=== PATIENT | female | born 1975 | race Caucasian/White ===

== ENCOUNTER → 2020-05-03 16:10 | Outpatient (CLI) | payer BC, SELFPAY ==
--- NOTE | ~2020-05-03 | MM_ITS ---
EXAMINATION: MM screening [facility] BI w yuko HISTORY: Screening mammogram TECHNIQUE: Craniocaudal and mediolateral oblique 3-D tomosynthesis images were obtained and synthetic 2-D images were generated. CAD analysis was submitted and interpreted. COMPARISON: 03/25/2019, 03/12/2018, 12/30/2016 bilateral digital screening mammogram examinations BREAST PARENCHYMAL COMPOSITION: There are scattered areas of fibroglandular density. FINDINGS: Bilateral chronic low-density small circumscribed axillary tail opacities consistent with b enign lymph nodes. There is no evidence of suspicious mass, calcification, or architectural distortio n to suggest malignancy in either breast. There has been no suspicious interval change. IMPRESSION: 1. No mammographic evidence of malignancy. 2. Recommend routine screening mammography in one year. BI-RADS Category 2: Benign finding(s). Reviewed, dictated and finalized at location A. 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
== END ==
PROVIDERS: Visit Provider Obstetrics & Gynecology
DX: Z12.31 Encounter for screening mammogram for malignant neoplasm of breast (principal)
CPT/HCPCS: 77063; 77067

== ENCOUNTER → 2020-06-23 06:47 | Outpatient (CLI) | payer BC, SELFPAY ==
[2020-06-23 19:22] LABS: SARS-CoV-2 RNA PCR Negative
== END ==
PROVIDERS: PCP Family Medicine; Visit Provider Family Medicine
DX: Z20.822 Contact with and (suspected) exposure to COVID-19 (principal); J02.9 Acute pharyngitis, unspecified; R52 Pain, unspecified
CPT/HCPCS: C9803; U0003; U0005

== ENCOUNTER 2020-11-14 16:17 | Outpatient (CLI) | payer BC, SELFPAY ==
--- NOTE | 2020-11-14 16:34 | ECG_ITS ---
Measurements Intervals Tyler Rate: 73 P: 33 OH: 161 QRS: 33 QRSD: 93 T: 42 QT: 401 QTc: 445 Interpretive Statements SINUS RHYTHM NORMAL ECG Electronically Signed On 11-14-2020 17:22:22 CDT by Paul Garcia D.O.
== END 2020-11-14 16:18 | disposition home or self-care (01) ==
PROVIDERS: PCP Family Medicine; Visit Provider Nurse Practitioner Family
DX: Z01.810 Encounter for preprocedural cardiovascular examination (principal)
CPT/HCPCS: 93005

== ENCOUNTER → 2021-04-16 16:16 | Outpatient (CLI) | payer BC, SELFPAY ==
--- NOTE | ~2021-04-16 | US_ITS ---
EXAMINATION:US venous doppler LE BI INDICATION:Bilateral lower extremity edema TECHNIQUE: Multiple grayscale, color flow and Doppler images of the right and left lower extremity de ep venous systems were obtained and reviewed. COMPARISON:No prior studies for comparison. FINDINGS: The common femoral, superficial femoral and popliteal veins demonstrate normal respiratory variation, augmentation and compressibility. Color flow is also seen within the posterior tibial, pe roneal, greater saphenous and profunda veins. IMPRESSION: 1: No lower extremity deep venous thrombosis. Reviewed, dictated and finalized at location B. 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
--- NOTE | ~2021-04-16 | XR_ITS ---
XR knee LT 3V DATE: 04/16/2021 16:58 INDICATION: Swelling TECHNIQUE: AP, lateral, sunrise views COMPARISON: None FINDINGS: No fracture or dislocation or joint effusion. No periosteal reaction or bone destruction, r adiopaque intra-articular loose body or chondrocalcinosis. There is slight periarticular spurring of the patella. Joint spaces are well preserved. IMPRESSION: Slight periarticular spurring of the patella consistent with osteoarthritis Reviewed, dictated and finalized at location A. O ROUTER IMPRESSION: Slight periarticular spurring of the patella consistent with osteoa rthritis
== END ==
PROVIDERS: PCP Family Medicine; Visit Provider Nurse Practitioner Family
DX: R60.0 Localized edema (principal); M76.52 Patellar tendinitis, left knee
CPT/HCPCS: 73562; 93970

== ENCOUNTER → 2021-05-17 10:51 | Outpatient (CLI) | payer BC, SELFPAY ==
--- NOTE | ~2021-05-17 | MR_ITS ---
EXAMINATION: MR lower leg LT wo/w con DATE: 05/17/2021 12:12 INDICATION: Left lower leg pain TECHNIQUE: Magnetic resonance imaging (MRI) of the left lower leg was performed without intravenous c ontrast. A marker was placed over the region of concern at the anteromedial aspect of the proximal l eft lower leg. Sequences included axial, sagittal and coronal T1-weighted FSE and fluid sensitive FSE STIR, axial T2-weighted FS FSE, axial T1-weighted FS FSE and postcontrast axial, sagittal and oliver l T1-weighted FS FSE. COMPARISON: Left knee radiographs dated 04/16/2021 FINDINGS: Bone alignment is normal. Normal bone marrow signal throughout with no fracture, reactive edema or pa thologic marrow replacing process. There is focal severe fatty atrophy involving portion of the dista l left medial head of the gastrocnemius muscle. There appears to be a similar but significantly small er region of fatty atrophy at the medial head of the right gastrocnemius. There are some subtle patch y increased signal in the bilateral gastrocnemius and soleus muscles again left more prominent than r ight. Remaining musculature of the left calf is normal. No abnormal masses or fluid collections ident ified. No abnormally enhancing lesions. IMPRESSION: 1. Patchy increased muscle signal in the left gastrocnemius and soleus muscles with small region of s evere fatty atrophy of the distal medial head of the gastrocnemius. Although this could be due to tra faviola or denervation change, the appearance of similar but less severe findings at the contralateral ri ght calf also raises the possibility of another nonspecific acute on chronic myositis which could rep resent either an inflammatory, infectious or drug related myositis. Reviewed, dictated and finalized at location A. RETE CURER IMPRESSION: 1. Patchy increased muscle signal in the left gastrocnemius and soleus muscles with small region of severe fatty atrophy of the distal medial head of the yuri rocnemius. Although this could be due to trauma or denervation change, the appe arance of similar but less severe findings at the contralateral right calf also raises the possibility of another nonspecific acute on chronic myositis which could represent either an inflammatory, infectious or drug related myositis.
[2021-05-17 11:12] LABS: Estimated Glomerular Filt Rate > 60
== END ==
PROVIDERS: Visit Provider Orthopaedic Surgery
DX: M79.662 Pain in left lower leg (principal)
CPT/HCPCS: 73720; A9577

== ENCOUNTER → 2021-06-04 16:13 | Outpatient (CLI) | payer BC, SELFPAY ==
--- NOTE | ~2021-06-04 | MM_ITS ---
EXAMINATION: MM screening [facility] BI w yuko HISTORY: Screening mammogram TECHNIQUE: Craniocaudal and mediolateral oblique 3-D tomosynthesis images were obtained and synthetic 2-D images were generated. CAD analysis was submitted and interpreted. COMPARISON: 05/03/2020, 03/25/2019, 02/23/2018 BREAST PARENCHYMAL COMPOSITION: There are scattered areas of fibroglandular density. FINDINGS: There is no evidence of suspicious mass, calcification, or architectural distortion to sugg est malignancy in either breast. There has been no suspicious interval change. IMPRESSION: 1. No mammographic evidence of malignancy. 2. Recommend routine screening mammography in one year. BI-RADS Category 1: Negative Reviewed, dictated and finalized at location A.
== END ==
PROVIDERS: Visit Provider Obstetrics & Gynecology
DX: Z12.31 Encounter for screening mammogram for malignant neoplasm of breast (principal)
CPT/HCPCS: 77063; 77067

== ENCOUNTER 2021-09-22 08:09 | Emergency (ER) | payer BC, SELFPAY ==
[2021-09-22 08:18] VITALS: BP 106/78; PULSE 99; RESP 20; TEMP 37.1; O2SAT 100
--- NOTE | 2021-09-22 08:23 | ED.URI ---
HPI - URI/Sore Throat General Chief Complaint: Upper Respiratory Infection Stated Complaint: Sore Throat Time Seen by Provider: 09/22/21 08:24 History of Present Illness HPI Narrative: 46-year-old female presented for complaint of sore throat and sores in mouth for 4 days. She also endorsed today she noticed nasal congestion. She denies cough, shortness of breath, wheezing, nausea, vomiting, diarrhea, fevers or chills. Taking throat lozenges for symptoms. Denies sick contacts, denies lesions to hands or feet. She tested positive for covid september 07. Related Data Home Medications Medication Instructions Recorded Confirmed levothyroxine 50 mcg tablet 50 mcg PO DAILY 05/17/19 09/22/21 omeprazole 40 mg capsule,delayed 40 mg PO DAILY 04/11/21 09/22/21 release Allergies Allergy/AdvReac Type Severity Reaction Status Date / Time Penicillins Allergy Unknown Unknown Verified 09/22/21 08:27 SEAFOOD Allergy Unknown CHILD, Uncoded 05/15/21 13:56 VERY VAGUE-TYPE OF SEAFOOD UNKNOWN Review of Systems Review of Systems: CONSTITUTIONAL: Denies body aches, fever, chills, or sweats. EYES: Denies visual changes, redness, or discharge. ENT: Reports rhinorrhea, congestion, sore throat, mouth pain CARDIOVASCULAR: Denies chest pain, palpitations, or edema. RESPIRATORY: Denies dyspnea. GASTROINTESTINAL: Denies abdominal pain, nausea, vomiting, or diarrhea. SKIN: Denies rash, itching, or wounds. MUSCULOSKELETAL: Denies back pain, joint pain, or myalgia. NEUROLOGIC: Denies headache PMFSH Past Medical History Medical History BMI 30.0-30.9,adult Lump in thyroid Family History Family History Father Family history of transient ischemic attacks Grandparent Family history of transient ischemic attacks Family history of lung cancer Social History Social History Second hand tobacco smoke exposure: No Alcohol intake: current Substance use: never Substance use type: does not use Exam Narrative: GENERAL: well-appearing EYES: conjunctivae clear ENT: Mucous membranes moist. TM pearly guthrie with normal light reflex bilaterally; no tragal tenderness. Oropharynx erythematous. one round raised area on inner cheeks bilaterally, endorses tenderness with palpation no open areas ulcers or blisters; No drooling, no hoarseness, no trismus, uvula midline. NECK: Supple. No lymphadenopathy CHEST: Clear to auscultation, breath sounds equal. HEART: Regular rate and rhythm. No murmur heard. SKIN: Warm, dry, no rash. NEURO: Alert and oriented x3. Course Course Emergency Course: Patient is aware of diagnosis, understands and agrees to treatment plan. Anticipatory guidance given. Patient agrees to follow-up as directed and is aware of reasons to seek care at the emergency department. Portions of this record may have been created with voice recognition software Level of Care: Express Care Visit Vital Signs Vital signs: Vital Signs Temperature 98.8 F 09/22/21 08:18 Pulse Rate 99 09/22/21 08:18 Respiratory Rate 20 09/22/21 08:18 Blood Pressure 106/78 09/22/21 08:18 Pulse Oximetry 100 09/22/21 08:18 Oxygen Delivery Room Air 09/22/21 08:18 Temperature 98.8 F 09/22/21 08:18 Pulse Rate 99 09/22/21 08:18 Respiratory Rate 20 09/22/21 08:18 Blood Pressure 106/78 09/22/21 08:18 Pulse Oximetry 100 09/22/21 08:18 Oxygen Delivery Room Air 09/22/21 08:18 MDM - URI/Sore Throat MDM Narrative Medical decision making narrative: strep negative result reviewed with pt. Advise supportive treatments. Patient is appropriate for outpatient treatment and follow-up. Differential Diagnosis Differential diagnosis: Likely upper respiratory infection, viral infection and pharyngitis Lab Data Labs: Strep S
== END 2021-09-22 08:50 | disposition home or self-care (01) ==
PROVIDERS: Emergency Provider Nurse Practitioner Family; PCP Family Medicine
DX: K13.79 Other lesions of oral mucosa (principal); Z86.16 Personal history of COVID-19
CPT/HCPCS: 87081; 87880; 99213; G0463

== ENCOUNTER → 2022-07-18 15:39 | Outpatient (CLI) | payer BC, SELFPAY ==
--- NOTE | ~2022-07-18 | MM_ITS ---
EXAMINATION: MM screening [facility] BI w yuko HISTORY: Screening mammogram TECHNIQUE: Craniocaudal and mediolateral oblique 3-D tomosynthesis images were obtained and synthetic 2-D images were generated. CAD analysis was submitted and interpreted. COMPARISON: 06/04/2021, 05/03/2020, 03/25/2019 bilateral screening mammogram examinations BREAST PARENCHYMAL COMPOSITION: There are scattered areas of fibroglandular density. FINDINGS: There is no evidence of suspicious mass, calcification, or architectural distortion to sugg est malignancy in either breast. There has been no suspicious interval change. IMPRESSION: 1. No mammographic evidence of malignancy. 2. Recommend routine screening mammography in one year. BI-RADS Category 1: Negative Reviewed, dictated and finalized at location A.
== END ==
PROVIDERS: PCP Obstetrics & Gynecology; Visit Provider Obstetrics & Gynecology
DX: Z12.31 Encounter for screening mammogram for malignant neoplasm of breast (principal)
CPT/HCPCS: 77063; 77067

== ENCOUNTER 2024-12-02 00:29 | Day surgery (SDC) | payer OTHER, SELFPAY ==
--- OUTSIDE RECORDS SUMMARY | 1999-03-23 19:00 | XMS_ITS | Continuity of Care Document ---
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 Name Role Phone No Information Unavailable Unavailable Medications Medication Instructions Dosage Effective Dates (start - stop) Status Comments No Drug Therapy Prescribed Advance Directives Directive Yes / No Effective Date File Name No Information Encounters Encounter Description Practice Location Reason(s) For Visit Diagnoses Date Provider Providers Copied on Encounter [facility], [address] [place] [address], [id number], [place] tel:[phone] No Information No Information Family History Family Member Type Diagnosis Age At Onset No Information Payers Payer name Insurance type Covered libertarian ID Authoriza tion(s) No Information Social History Type Description Quantity Date Captured Comments Sex Female Smoking Status No Information Chief Complaint And Reason For Visit No Information History Of Present Illness Encounter Date Complaint History Of Prese nt Illness No Information Medications Administered Medication Instructions Dosage Effective Dates (start - stop) Status Comments No Drug Therapy Prescribed Instructions Date Instruction Additional Infor mation No Information Assessments Type Assessment Date No Information
[2024-11-24 16:29] VITALS: BMI 26.1
--- NOTE | 2024-11-24 16:32 | PC.NURSE ---
Report to the Outpatient Waiting Room, entrance under the green pavilion located off [facility], at 0600 on 12-02-24. Planned Procedure Time: 0730.? Time changes happen often and if your time is changed the preop area will call you the afternoon before. - You and your visitor will be asked to self-screen and do not enter if you have any COVID symptoms. Please call surgeon if you need to reschedule. - A mask is optional within the hospital at this time. Patients may have clear liquids (water, carbonated beverages, clear teas, apple juice) until 3 hours prior to surgery with a maximum of 20 ounces. 0430 - No food from midnight until time of surgery and no smoking, or chewing tobacco (or any form of nicotine). No chewing gum, candy or mints. - Infants may have breast milk until 4 hours before surgery, formula 6 hours prior to surgery. - Children will be allowed to drink immediately following surgery.? If applicable, please bring a bottle or sippy cup to assist with drinking. Juice, water, soda, and popsicles are readily available.? For infants on formula, please bring formula the day of surgery.? Pacifiers are allowed. Take only the following medications with a SIP of water on the morning of surgery: levothyroxine, sertraline DO NOT STOP ANY OF YOUR OTHER PRESCRIPTION MEDICATIONS PRIOR TO SURGERY EXCEPT THE FOLLOWING Hold all vitamins and supplements for 3 days per anesthesiologist. Patient told to bring rescue inhalers DOS to the hospital Medications to discontinue per physician: N/A Please no make-up, nail montserratian, hairspray, perfume, deodorant, or body powder the day of surgery.? No jewelry (including any body piercings) or valuables the day of surgery, leave them at home.? Please take a shower or bath the night before, or the morning of, surgery with an antibacterial soap.? Wear comfortable, loose fitting clothing.? Children are encouraged to wear pajamas. - Jewelry must be removed prior to entering the operating room.? Rings and piercings that are not removed may be cut off. - The hospital will not accept responsibility for valuables.? - Please leave all valuables, including medications, at home the day of surgery. If you are going home after surgery, a licensed wheelchair van driver must drive you home.? - NO public transportation without another adult if you receive anesthesia. - We recommend that an adult stay with you for 24 hours following discharge. - We also recommend that you do not drive, make important decision, drink alcoholic beverages, or take any drugs that were not prescribed by your health care provider for at least 24 hours after your discharge time. For Pediatric surgeries, we recommend two adults accompany the child home. Follow any additional instructions given to you from your surgeon. Telephone instructions given to Nhung Loja and asked if any additional questions and then verbalized understanding. Patient advised to call surgeon office or pre surgery nurse liaison [phone] if any additional questions.
--- NOTE | 2024-11-30 03:39 | P.HP_ITS ---
H&P: HPI History of Present Illness Date/Time: 11/30/24 03:39 Chief Complaint: Pelvic pain with right ovarian cyst Narrative: This 49-year-old female status post hysterectomy admitted for laparoscopic salpingo-oophorectomy secondary right ovarian cyst pelvic pain and dyspareunia risks and benefits reviewed including but not exclusive of , aspiration pneumonia, bleeding, transfusion, perforation injury to bowel, bladder, ureters, or other internal organs with no for open laparotomy. She received the A[employer] handout entitled laparoscopy. She had all questions answered. She asked to proceed. Review of Systems Review of Systems: CONSTITUTIONAL: Denies body aches, fever, chills, or sweats. EYES: Denies visual changes, redness, or discharge. ENT: Reports rhinorrhea, congestion, sore throat, mouth pain CARDIOVASCULAR: Denies chest pain, palpitations, or edema. RESPIRATORY: Denies dyspnea. GASTROINTESTINAL: Denies abdominal pain, nausea, vomiting, or diarrhea. SKIN: Denies rash, itching, or wounds. MUSCULOSKELETAL: Denies back pain, joint pain, or myalgia. NEUROLOGIC: Denies headache PMFSH Past Medical History Medical History Osteoarthrosis, shoulder region BMI 29.0-29.9,adult Adult BMI 32.0-32.9 kg/sq m Lump in thyroid BMI 30.0-30.9,adult Family History Family History Father Family history of transient ischemic attacks COPD (chronic obstructive pulmonary disease) Grandparent Family history of transient ischemic attacks Family history of lung cancer Mother No problems noted. Sibling No problems noted. 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 Gender identity (if verbalized by the patient): Female Spiritual care concerns: No Meds Home Medications and Allergies Home Medications ?Medication ?Instructions ?Recorded ?Confirmed ?Type levothyroxine 50 mcg tablet 50 mcg PO DAILY 05/17/19 0 11/24/24 History diphenhydramine HCl 12.5 mg/5 mL 25 mg (10 mL) PO Q6H PRN magic 09/22/21 11/24/24 Rx oral liquid (Benadryl Allergy) mouthwash #118 mL albuterol sulfate 2.5 mg/3 mL 2.5 mg (3 mL) inhalation Q6H #180 02/08/24 11/24/24 Rx (0.083 %) solution for nebulization mL sertraline 50 mg tablet (Zoloft) 50 mg PO DAILY #90 ta bs 02/08/24 11/24/24 Rx albuterol sulfate 90 mcg/actuation 2 inh inhalation Q4 H PRN shortness 09/08/24 11/24/24 Rx aerosol inhaler of breath or wheezing #3 dev ice omeprazole 40 mg capsule,delayed See Rx Instructions . Route 09/08/24 11/24/24 Rx release .COMPLEX #90 caps multivitamin (One Daily 1 tablet PO DAILY 11/24/24 0 11/24/24 History Multivitamin tablet) Allergies Allergy/AdvReac Type Severity Reaction Status Date / Time Penicillins Allergy Unknown Unknown Verified 11/24/24 16:11 Exam Const: General: cooperative, healthy appearing, comfortable and overweight Orientation/consciousness: oriented to person, oriented to place and oriented to time HENMT: Head: normal to inspection Resp: Effort & Inspection: normal respiratory effort Cardio: Rate: regular rate Rhythm: regular rhythm Heart sounds: S1 normal heart sound present and S2 normal heart sound present GI: Inspection: normal to inspection : External Female Exam: normal external appearance Speculum Exam - Vagina: normal appearance of the vagina Speculum Exam - Cervix: Cervix absent Bimanual Exam- Adnexa, other: tender bilaterally Assessment and Plan Assessment and plan (1) Pelvic pain: Code(s): R10.2 - Pelvic and perineal pain Status: Acute Plan Proceed with laparoscopic bilateral salpingo-oophorectomy
[2024-12-02] VITALS (9 sets, daily range): BP systolic 97–144; BP diastolic 57–91; PULSE 77–102; RESP 12–18; TEMP 36.6–37.3; O2SAT 97–100
--- OUTSIDE RECORDS SUMMARY | 2024-12-02 00:31 | XMS_ITS | Clinical Summary ---
Author Organization [employer] [facility] Address [address] [place] [address] Care Team Providers Care Senior It Recruiter Name Role Phone Jerry Cantu MD Primary Care Provider [phone] Allergies Active Allergy Reactions Criticality Noted Date Comments Penicillins Unknown 09/11/2014 Unknown reaction, Happened as a child Medications sertraline (ZOLOFT) 50 mg tablet TAKE 1 TABLET BY MOUTH ONCE DAILY 1 Active levothyroxine 100 mcg tablet TAKE 1 TABLET BY MOUTH ONCE DAILY 1 Active albuterol sulfate 90 mcg/Actuation inhaler Take 2 Puffs by inhalation every 4 hours as needed for Wheezing or Shortness of Breath. 1 Active cyclobenzaprine (FLEXERIL) 10 mg tablet Take 10 mg by mouth 3 times daily as needed for Spasm. 1 Active traMADoL (ULTRAM) 50 mg tablet Take 50 mg by mouth every 8 hours as needed for Pain, Moderate. 2 Active cholestyramine, with sugar, (QUESTRAN) 4 gram Powder in Packet Take 1 packet at bedtime daily. No other PO medications 2 hours before and after. 60 Packet 2 2 Active cholestyramine, with sugar, (QUESTRAN) 4 gram Powder in Packet Take 1 packet at bedtime daily. No other PO medications 2 hours before and after. 60 Packet 2 2 Active omeprazole (PriLOSEC) 40 mg Capsule, Delayed Release(E.C.) Take 1 Capsule (40 mg) by mouth daily. 60 Capsule 3 Active Active Problems Problem Noted Date Diagnosed Date Esophageal dysphagia 12/12/2020 Sore throat 12/12/2020 Family History Medical History Relation Name Comments Colon Cancer Neg Hx Esophageal Cancer Neg Hx Social History Tobacco Use Types Packs/Day Years Used Date Smoking Tobacco: Never Smokeless Tobacco: Never Tobacco Cessation:Counseling Given: Not Answered Alcohol Use Standard Drinks/Week Comments Yes 0 (1 standard drink = 0.6 oz pur e alcohol) socially Comments No Sex and Gender Information Value Date Recorded Sex Assigned at Not on file Legal Sex Female 12:39 PM CDT Gender Identity Not on file Sexual Orientation Not on file Last Filed Vital Signs Vital Sign Reading Time Taken Comments Blood Pressure 120/79 01/04/2022 8:55 AM CDT Pulse 72 01/04/2022 8:55 AM CDT Temperature 36.3 C (97.3 F) 01/04/2022 8:35 AM CDT Respiratory Rate 9 01/04/2022 8:55 AM CDT Oxygen Saturation 100% 01/04/2022 8:55 AM CDT Inhaled Oxygen Concentration - - Weight 98.9 kg (218 lb) 01/04/2022 7:13 AM CDT Height 175.3 cm (5' 9) 01/04/2022 7:13 AM CDT Body Mass Index 32.19 01/04/2022 7:13 AM CDT Plan of Treatment Health Maintenance Due Date Last Done Comments DTAP/TDAP/TD VACCINES (1 - Tdap) 1992 HEPATITIS B VACCINES (1 of 3 - 19+ 3-dose series) 1992 BREAST CANCER SCREENING 2013 FIT-DNA Q 3 years 2018 FIT/FOBT Q 1 year 2018 Flex Sig/CT Colonography Q 5 years 2018 ZOSTER VACCINE (1 of 2) 06/01/2023 INFLUENZA VACCINE (#1) 2024 COLORECTAL SCREENING 01/05/2032 01/04/2022, 01/05/20 22 Colorectal Cancer Screening 01/05/2032 Procedures Procedure Name Priority Date/Time Associated Diagnosis Comments COLONOSCOPY REPORT 01/04/2022 8: 23 AM CDT from Last 3 Months or Most Recently Relevant to Health Maintenance Results * COLONOSCOPY REPORT (01/04/2022 8:23 AM CDT) Narrative Procedure Note Juan Francisco Ragsdale MD - 01/04/2022 8:22 AM CDT [facility] Endoscopy Patient Name: Nhung Loja Procedure Date: 01/04/2022 Date of : 1975 Attending MD: Juan Francisco Ragsdale , , Procedure: Colonoscopy Indications: Screening for colorectal malignant neoplasm, Incidental diarrhea noted Providers: Juan Francisco Ragsdale Referring MD: Jerry Cantu Medicines: General Anesthesia Complications: No immediate complications. Procedure: Informed consent was obtained for the procedure, including moderate sedation after risks were discussed. Based on the pre-procedure assessment, including review of the patient's medical history, medications, allergies, and review of systems, the patient was deemed to be an appropriate candidate for sedation. A timeout was performed. Continuous ECG monitoring, pulse oximetry, blood pressure monitoring, and direct observation were performed. The Colonoscope was introduced through the anus and advanced to the cecum, identified by appendiceal orifice and ileocecal valve. The colonoscopy was performed with ease. The patient tolerated the procedure well. The quality of the bowel preparation was good. The ileocecal valve, appendiceal orifice, and rectum were photographed. The quality of the bowel preparation was evaluated using the BBPS ([place] Bowel Preparation Scale) with scores of: Right Colon = 2 (minor amount of residual staining, small fragments of stool and/or opaque liquid, but mucosa seen well), Transverse Colon = 2 (minor amount of residual staining, small fragments of stool and/or opaque liquid, but mucosa seen well) and Left Colon = 2 (minor amount of residual staining, small fragments of stool and/or opaque liquid, but mucosa seen well). The total BBPS score equals 6. Findings: The perianal and digital rectal examinations were normal. Non-bleeding internal hemorrhoids were found during retroflexion. The hemorrhoids were small. The colon (entire examined portion) appeared normal. Biopsies were taken with a cold forceps for histology. The exam was otherwise without abnormality. Impression: - Non-bleeding internal hemorrhoids. - The entire examined colon is normal. Biopsied. - The examination was otherwise normal. Recommendation: - Patient has a contact number available for emergencies. The signs and symptoms of potential delayed complications were discussed with the patient. Return to normal activities tomorrow. Written discharge instructions were provided to the patient. - Resume previous diet. - Continue present medications. - Await pathology results. - Repeat colonoscopy in 10 years for screening purposes. Procedure Code(s): --- Professional --- 29564, Colonoscopy, flexible; with biopsy, single or multiple CPT copyright 2020 [employer]. All rights reserved. The codes documented in this report are preliminary and upon baseball hand sewer review may be revised to meet current compliance requirements. Juan Francisco Ragsdale, 01/04/2022 8:22:40 AM This report has been signed electronically. 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 [address] PCP - General Family Practice 12/12/20
--- OUTSIDE RECORDS SUMMARY | 2024-12-02 00:31 | XMS_ITS | Clinical Summary ---
Author Organization [facility] Address [address] [place] [address] Care Team Providers Care Automatic Blocker Name Role Phone Jerry Cantu MD Primary Care Provider [phone] Encounters Date Type Department Care Team Description 09/09/2024 9:49 AM CDT - 09/09/2024 11:59 PM CDT Hospital Encounter [facility] [address] [place] [address] Amanuel Coulter, METAL BENCH PATTERNMAKER Discharge Disposition: Home or Self Care (Routine Discharge) 09/09/2024 9:47 AM CDT - 09/09/2024 9:48 AM CDT Hospital Encounter [facility] Mammography [address] [place] [address] Roxie Hoang MD Discharge Disposition: Home or Self Care (Routine Discharge) 09/09/2024 Travel from Last 3 Months Social History Tobacco Use Types Packs/Day Years Used Date Smoking Tobacco: Never Assessed Comments Unknown Sex and Gender Information Value Date Recorded Sex Assigned at Female 09/09/2024 9:45 AM CDT Legal Sex Female 11:17 AM CDT Gender Identity Not on file Sexual Orientation Not on file Plan of Treatment Health Maintenance Due Date Last Done Comments Cervical Cancer Screening Pap Smear (Age 30 to 64) Every 3 Years 1973 Colorectal Cancer Screening Colonoscopy (10 Years) 1973 Annual Physical 1976 Hepatitis C 06/01/1991 DTaP, Tdap and Td Vaccines (1 - Tdap) 1992 Hepatitis B Vaccines (1 of 3 - 19+ 3-dose series) 1992 Cervical Cancer Screening Pap with HPV Testing (Age 30 to 64) Every 5 Years 06/01/2003 Cervical Cancer Screening with HPV 06/01/2003 Pneumococcal Vaccine: 50+ Years (1 of 1 - PCV) 06/01/2023 Zoster Vaccines (1 of 2) 06/01/2023 COVID-19 Vaccine ( season) 2024 01/21/2023, 01/31/2022, 03/23/2021, Additional history exists Mammogram Screening 09/09/2026 09/09/2024, Meningococcal B Vaccine Aged Out No l onger eligible based on patient's age to complete this topic Meningococcal Vaccine Aged Out No libertad larissa eligible based on patient's age to complete this topic RSV Immunizations Under 20 Months Aged Out No longer eligible based on patient's age to complete this topic Procedures Procedure Name Priority Date/Time Associated Diagnosis Comments MG SCREENING W EDWIN MING DIGI Routine 09/09/2024 10:36 AM CDT Encounter for screening mammogram for malignant neoplasm of breast CT ABD+PEL WWO CON Routine 09/09/2024 10 :05 AM CDT Unspecified abdominal pain from Last 3 Months Results * MG SCREENING W EDWIN MING DIGI (09/09/2024 10:36 AM CDT) Anatomical Region Laterality Modality Breast Bilateral Mammography 09/09/2024 3:51 PM CDT Impressions 09/09/2024 3:53 PM CDT IMPRESSION: No significant interval change. No mammographic evidence of malignancy. RECOMMENDATION: Routine ScreeningBilateral OVERALL IMAGING ASSESSMENT: ACR BI-RADS 1 - NEGATIVE. Ordered By: ROXIE NAIR Interpreted By: Abdulaziz Jade, 09/09/2024 3:51 PM Narrative 09/09/2024 3:53 PM CDT [address] [address] EXAMINATION: MG SCREENING W EDWIN MING DIGI INDICATIONS: Screening TECHNIQUE: Digital full field CC and MLO screening mammography bilaterally to include 3-D Tomosynthesis technique. This study was read with the assistance of a computer-aided detection system. HISTORY: No reported breast complaint. No documented personal or first degree family history of breast cancer. No documented prior breast procedure. COMPARISON: 09/05/2023, 07/18/2022, 06/04/2021, 05/03/2020, and 03/25/2019. TISSUE DENSITY: There are scattered areas of fibroglandular density. FINDINGS: No suspicious microcalcification or mass. No developing asymmetry or architectural distortion. No axillary adenopathy. us Roxie Nair MD MAMMO Final Resu lt * CT ABD+PEL WWO CON (09/09/2024 10:05 AM CDT) Anatomical Region Laterality Modality Abdomen Computed Tomogra phy 09/10/2024 6:45 PM CDT Impressions 09/10/2024 6:51 PM CDT IMPRESSION: 1. Multicystic elongated lesion in the right lateral pelvic wall measuring up to 4.3 cm in greatest dimension is indeterminate. Further evaluation with pelvic ultrasound recommended. 2. No acute abdominal or pelvic abnormalities otherwise. No specific CT findings to explain patient's symptoms. Referred By: AMANUEL COULTER Interpreted By: Juancarlos Byrd MD, 09/10/2024 6:45 PM Narrative 09/10/2024 6:51 PM CDT [address] [place] [address] EXAMINATION: CT Abdomen and Pelvis with and without contrast REASON FOR EXAM: Abdominal pain Generalized abdominal pain for 8 months. COMPARISON: None TECHNIQUE: Axial CT images of the abdomen and pelvis are obtained before and after uneventful intravenous administration of 100 cc Isovue-370. Subsequent coronal and sagittal reformatted sequences are created for evaluation. A dose lowering technique was used for this procedure, which may include, but is not limited to, dose reduction technique, automated exposure control, iterative reconstruction, ALARA (As Low As Reasonably Achievable), or Image Gently techniques. FINDINGS: Lung bases are clear. No pleural effusion. Heart size normal. No pericardial effusion. Liver and spleen are normal in size and surface contour. No abnormal enhancing hepatic lesions. Gallbladder pancreas and adrenal glands unremarkable. Kidneys deficits symmetric uptake of contrast. No hydronephrosis or obstructive uropathy on either side. Abdominal aorta normal in caliber throughout. Bowel is normal in caliber throughout. No evidence of bowel obstruction. Bladder contours are smooth. No free fluid in the pelvis. Atrophic versus postsurgical uterus. Multicystic elongated lesion in the right lateral pelvis wall measuring up to 4.3 cm in greatest dimension is indeterminate. Further evaluation with pelvic ultrasound will be recommended. Bone level imaging shows no destructive osseous lesions. Lower lumbar degenerative disc disease noted. Procedure Note Juancarlos Byrd MD - 09/10/2024 [place] [address] EXAMINATION: CT Abdomen and Pelvis with and without contrast REASON FOR EXAM: Abdominal pain Generalized abdominal pain for 8 months. COMPARISON: None TECHNIQUE: Axial CT images of the abdomen and pelvis are obtained beforeand after uneventful intravenous administration of 100 cc Isovue-370.Subsequent coronal and sagittal reformatted sequences are created forevaluation. A dose lowering technique was used for this procedure, whichmay include, but is not limited to, dose reduction technique, automatedexposure control, iterative reconstruction, ALARA (As Low As ReasonablyAchievable), or Image Gently techniques. FINDINGS: Lung bases are clear. No pleural effusion. Heart size normal.No pericardial effusion. Liver and spleen are normal in size and surface contour. No abnormalenhancing hepatic lesions. Gallbladder pancreas and adrenal glandsunremarkable. Kidneys deficits symmetric uptake of contrast. Nohydronephrosis or obstructive uropathy on either side. Abdominal aortanormal in caliber throughout. Bowel is normal in caliber throughout. Noevidence of bowel obstruction. Bladder contours are smooth. No freefluid in the pelvis. Atrophic versus postsurgical uterus. Multicysticelongated lesion in the right lateral pelvis wall measuring up to 4.3 cmin greatest dimension is indeterminate. Further evaluation with pelvicultrasound will be recommended. Bone level imaging shows no destructiveosseous lesions. Lower lumbar degenerative disc disease noted. IMPRESSION: 1. Multicystic elongated lesion in the right lateral pelvic wallmeasuring up to 4.3 cm in greatest dimension is indeterminate. Furtherevaluation with pelvic ultrasound recommended. 2. No acute abdominal or pelvic abnormalities otherwise. No specific CTfindings to explain patient's symptoms. Referred By: AMANUEL COULTER Interpreted By: Juancarlos Byrd MD, 09/10/2024 6:45 PM us Amanuel Coulter METAL BENCH PATTERNMAKER CT Final Res ult from Last 3 Months Insurance Care Teams Automatic Blocker Relationship Specialty Start Date End Date Jerry Cantu MD [address] [place] [address] PCP - General FAMILY PRACTICE 08/12/23
--- OUTSIDE RECORDS SUMMARY | 2024-12-02 00:31 | XMS_ITS | Clinical Summary ---
Author Organization [facility] Address [facility] [place] [address] Care Team Providers Care Reverberatory Skimmer Name Role Phone Jerry Cantu MD Primary Care Provider [phone] Allergies Active Allergy Reactions Criticality Noted Date Comments Penicillins Hives,Itching Medium Medications sertraline (ZOLOFT) 50 mg tabletIndicatio ns:Anxiety with Depression Take 1 tablet (50 mg total) by mouth every morning 0 Active levothyroxine (SYNTHROID) 100 mcg tabletIndicatio ns:hypothyroidi sm Take 1 tablet (100 mcg total) by mouth every morning 0 Active albuterol HFA (PROVENTIL HFA,VENTOLIN HFA,PROAIR HFA) 90 mcg/actuation inhalerIndicati ons:Acute Asthma Attack,Bronchos pasm Prevention Inhale 2 puffs as needed for wheezing or shortness of breath 0 Active omeprazole (PriLOSEC) 40 mg capsuleIndicati ons:Treatment of Non-Bleeding Gastric Disorder Take 1 capsule (40 mg total) by mouth every morning 1 Active ipratropium-alb uteroL (DUO-NEB) 0.5-2.5 mg/3 mL nebulizer solution USE 1 VIAL EVERY 4 HOURS NEEDED FOR WHEEZING, VIA NEBULIZER 4 Active semaglutide (OZEMPIC SUBQ)Indication s:wt loss Inject 0.5 mg under the skin once a week Active cetirizine (ZyrTEC) 10 mg tabletIndicatio ns:Allergic Rhinitis Take 1 tablet (10 mg total) by mouth every morning Active Active Problems Problem Noted Date Diagnosed Date 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 09/17/2023 Esophageal dysphagia 12/12/2020 Sore throat 12/12/2020 Pain in female pelvis 05/01/2016 Arthralgia of hip 05/01/2016 Myofascial pain 05/01/2016 Thumb pain 01/31/2015 Surgical History Surgery Date Site/Laterality Comments [place] APPENDECTOMY childhood [place] TONSILLECTOMY PRIMARY/SEC ONDARY <AGE 12 [place] TOTAL ABDOMINAL HYSTERECT W/WO RMVL TUBE OVARY 03/24/2005 - 03/23/2006 partial FLUORO GUIDED INJECTION SHOU LDER RIGHT 03/10/2023 Right BLADDER SURGERY 03/24/2013 - 03/23/2014 mesh Medical History Medical History Date Comments Asthma Asthma Hx Other Medical Back Pain Hx Other Medical Hysterecotomy p artial 2010 Hx Other Medical Bladder 2013 chen mmer Personal history of other en docrine, nutritional and metabolic disease History of thyroid d isease - (Added by TW Conv) Personal history of other di seases of the respiratory system History of asthma - (Added b y TW Conv) Anxiety Thyroid disease Delayed emergence from gener al anesthesia slow to wake- not every time - denies prolonged intubation, reintubation or ICU stay Family History Medical History Relation Name Comments Ovarian cancer Father's Sister Ovarian ca ncer - (Added by TW Conv) Ovarian cancer Mother's Sister Ovarian ca ncer - (Added by TW Conv) Heart disease Other 1 Family history of Heart problems; Lung disease Other 2 Family history of Lung problems; Anesthesia problems Neg Hx Relation Name Status Comments Father's Sister Mother's Sister Other 1 Other 2 Social History Tobacco Use Types Packs/Day Years Used Date Smoking Tobacco: Never Smokeless Tobacco: Never Alcohol Use Standard Drinks/Week Comments Yes 0 (1 standard drink = 0.6 oz pur e alcohol) social AUDIT-C Answer Date Recorded Q1: How often do you have a drink containing alc ohol? 2-4 times a month 09/29/2023 Q2: How many drinks containi ng alcohol do you have on a typical day when you are drinking? 1 or 2 09/29/2023 Q3: How often do you have si x or more drinks on one occasion? Never 09/29/2023 Personal Safety Answer Date Recorded Have you ever been in or are you currently in a harmful physical or emotional relationship or is someone making you feel afraid or unsafe? Denies 09/29/2023 Comments No Sex and Gender Information Value Date Recorded Sex Assigned at Not on file Legal Sex Female 11:35 PM REFUSE COLLECTOR SUPERVISOR Gender Identity Not on file Sexual Orientation Not on file Obstetrics History Last Filed Vital Signs Vital Sign Reading Time Taken Comments Blood Pressure 122/80 02/13/2024 5:28 PM REFUSE COLLECTOR SUPERVISOR Pulse 75 02/13/2024 5:28 PM REFUSE COLLECTOR SUPERVISOR Temperature 36.5 C (97.7 F) 02/13/2024 5:28 PM REFUSE COLLECTOR SUPERVISOR Respiratory Rate 18 02/13/2024 5:28 PM REFUSE COLLECTOR SUPERVISOR Oxygen Saturation 99% 02/13/2024 5:28 PM REFUSE COLLECTOR SUPERVISOR Inhaled Oxygen Concentration - - Weight 80.3 kg (177 lb) 07/27/2024 9:22 AM CDT Height 175.3 cm (5' 9) 07/27/2024 9:22 AM CDT Body Mass Index 26.14 07/27/2024 9:22 AM CDT Plan of Treatment Health Maintenance Due Date Last Done Comments Colon Cancer Screening-Colonoscopy 1973 Depression Screening 1973 Hepatitis C Screening 1973 DTaP/Tdap/Td Vaccine (1 - Tdap) 1984 Hepatitis B Screening 06/01/1991 Regular Well Visit/Exam 18-64 06/01/1991 Pneumococcal vaccine <65 (1 of 2 - PCV) 1992 Zoster Vaccine (1 of 2) 06/01/2023 Breast Cancer Screening-Mammogram 09/04/2024 024, 09/05/2023 Influenza Vaccine (#1) 2024 12/30/2023 Insurance [employer] OOS ANTHEM ACCESS [facility] CHOICE PLUS [facility] HMO/PPO Address: [address] [address] [place] [address] [facility] CHOICE PLUS [facility] HMO/PPO Address: [facility] [id number] [place] [address] Care Teams Reverberatory Skimmer Relationship Specialty Start Date End Date Jerry Cantu MD PCP - General Family Medicine 02/09/20
--- OUTSIDE RECORDS SUMMARY | 2024-12-02 00:31 | XMS_ITS | Clinical Summary ---
Author Organization [facility] Address [address] [place] [address] Phone Care Team Providers Care Induction Furnace Operator Name Role Phone Provider, Not On File Primary Care Provider Unav ailable Allergies Active Allergy Reactions Criticality Noted Date Comments Penicillins Unknown 09/11/2014 Medications LEVOTHYROXINE SODIUM PO Take by mouth. Active ALBUTEROL IN take by inhalation . Active Social History Tobacco Use Types Packs/Day Years Used Date Smoking Tobacco: Never Alcohol Use Standard Drinks/Week Comments No 0 (1 standard drink = 0.6 oz pur e alcohol) Comments No Sex and Gender Information Value Date Recorded Sex Assigned at Not on file Legal Sex Female 9:01 AM CDT Gender Identity Not on file Sexual Orientation Not on file Last Filed Vital Signs Vital Sign Reading Time Taken Comments Blood Pressure 110/68 09/11/2014 12:19 PM CDT Pulse 76 09/11/2014 12:19 PM CDT Temperature 36.4 C (97.6 F) 09/11/2014 9:08 AM CDT Respiratory Rate 16 09/11/2014 12:19 PM CDT Oxygen Saturation 100% 09/11/2014 12:19 PM CDT Inhaled Oxygen Concentration - - Weight 98.9 kg (218 lb) 09/11/2014 9:08 AM CDT Height 176.5 cm (5' 9.5) 09/11/2014 9:08 AM CDT Body Mass Index 31.73 09/11/2014 9:08 AM CDT Plan of Treatment Not on file Insurance [facility] Care Teams Induction Furnace Operator Relationship Specialty Start Date End Date Provider, Not On File [place] PCP - General 09/11/14
--- NOTE | 2024-12-02 05:39 | WPDHPUPDATE1 ---
History and Physical Update Update Date/Time: 12/02/24 05:39 History and Physical has been reviewed, including an updated exam of the patient. There are NO changes in the patient's condition. Risks, benefits, and alternatives have been discussed and questions answered. Patient agrees to proceed with procedure.
[2024-12-02] MEDS: LACTATED RINGERS 1,000 ML 30 ML IV CONT (06:30)
--- NOTE | 2024-12-02 06:57 | P.PNAN_ITS ---
Anes - Initial Pre Proc Eval Procedure: Operation Date: 12/02/24 07:30 Proposed Procedures p Laparoscopic Bilateral Salpingo-Oophorectomy, Lysis of Adhesions - Gustavo Avila MD Date/Time: 12/02/24 06:57 Surgeon: Gustavo Avila MD Pre Op Diagnosis: pelvic, pelvic adhesions, dyspareunia Patient Data Age: 49 Gender: F Height: 1.75 m Weight: 80.29 kg Allergies Allergy/AdvReac Type Severity Reaction Status Date / Time Penicillins Allergy Unknown Unknown Verified 11/24/24 16:11 Home Medications ?Medication ?Instructions ?Recorded ?Confirmed ?Type levothyroxine 50 mcg tablet 50 mcg PO DAILY 05/17/19 0 11/24/24 History diphenhydramine HCl 12.5 mg/5 mL 25 mg (10 mL) PO Q6H PRN magic 09/22/21 11/24/24 Rx oral liquid (Benadryl Allergy) mouthwash #118 mL albuterol sulfate 2.5 mg/3 mL 2.5 mg (3 mL) inhalation Q6H #180 02/08/24 11/24/24 Rx (0.083 %) solution for nebulization mL sertraline 50 mg tablet (Zoloft) 50 mg PO DAILY #90 ta bs 02/08/24 11/24/24 Rx albuterol sulfate 90 mcg/actuation 2 inh inhalation Q4 H PRN shortness 09/08/24 11/24/24 Rx aerosol inhaler of breath or wheezing #3 dev ice omeprazole 40 mg capsule,delayed See Rx Instructions . Route 09/08/24 11/24/24 Rx release .COMPLEX #90 caps multivitamin (One Daily 1 tablet PO DAILY 11/24/24 0 11/24/24 History Multivitamin tablet) hydrocodone 5 mg-acetaminophen 325 1 tablet PO Q4H PRN pain #20 tabs 12/02/24 Rx mg tablet Patient hx anesthesia problems: none Family hx anesthesia problems: none Results Review: All pre-operative results and documents have been reviewed as part of the pre- operative evaluation. [facility] [place] Past Medical History Medical History (Updated 12/01/24 @ 14:53 by Alon Lees DO) Hypothyroid GERD (gastroesophageal reflux disease) Asthma Osteoarthrosis, shoulder region BMI 29.0-29.9,adult Adult BMI 32.0-32.9 kg/sq m Lump in thyroid BMI 30.0-30.9,adult Family History Family History Father Family history of transient ischemic attacks COPD (chronic obstructive pulmonary disease) Grandparent Family history of transient ischemic attacks Family history of lung cancer Mother No problems noted. Sibling No problems noted. 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 Informed Consent: The patient's anesthetic plan and its attendant risks and benefits were discussed with the patient/family/POA. Questions were solicited and answers provided to the satisfaction of the patient/family/POA.
[2024-12-02] MEDS: KETOROLAC 15 MG/ML VIAL (*BKC) IV PUSH (07:29)
[2024-12-02] MEDS: ACETAMINOPHEN 500 MG TABLET 1000 MG PO (07:29)
--- NOTE | 2024-12-02 08:01 | S_PTH ---
PATIENT: Nhung Loja LOC: [facility] U#:[id number] AGE/SX: 49/F ROOM: RE12/02/[address]: Gustavo Avila MD : 1975 BED: DIS: 12/02/2024 SPEC #: [id number] RECD: 12/02/24 10:29 STATUS: RADHA REQ #: [id number] STELLA: 12/02/24 08:[address]: Gustavo Hoang DEPT: [facility] Surgical RECD BY: Nadia Saleh ENTERED: 12/02/24 10:31 SP TYPE: Surgical OTHR DR: Jerry Cantu MD Tissues: A - Ovary Procedures: Hematoxylin and Eosin Stain Gross and Microscopic Level 4
--- NOTE | 2024-12-02 08:02 | P.OP_ITS ---
Procedure Note - Detailed Date of Procedure 12/02/24 Pre-op Diagnosis pelvic, pelvic adhesions, dyspareunia Post-op Diagnosis Same Procedure Performed Laparoscopy with lysis of adhesions and right salpingo-oophorectomy Surgeon Gustavo Avila MD Anesthesia General Indications This is a 49-year-old female with history of hysterectomy with severe pelvic pain Findings Uterus was absent. The left fallopian tube and ovary were absent. Multiple adhesions were seen from omentum and small bowel to the vaginal cuff Description of Procedure The patient was prepped and draped in the normal sterile fashion placed in the dorsal lithotomy position. Under excellent general trach anesthesia weighted speculum placed posterior fornix vagina. Sponge stick was placed weighted speculum was removed and the bladder was drained of clear urine. Gloves were changed. A supraumbilical incision made the Veress needle passed in the abdomen. Abdomen filled with CO2 gas [id number]. The 5mm trocar advanced under direct v isualization with the Optiview. No injury seen. Patient placed in Trendelenburg and a suprapubic incision made. The 5 trocar advanced under direct visualization assuring no injury. The left lower quadrant incision made the 10mm trocar advanced under direct visualization assuring no injury. Multiple adhesions were seen and using the 5mm port this was put on stretch and sharply dissected using the LigaSure until the vaginal cuff was completely clear. Irrigation undertaken and hemostasis was assured. The left ovary and tube were surgically absent. The right fallopian tube was present with a small cyst the infundibulopelvic structure was skeletonized clamping burning cutting and then placing this in an Endo-Catch and removed through the lower left quadrant. Irrigation undertaken until clear. No other abnormalities were seen. The lower sites removed. The gas removed from the abdomen. The upper site removed in the incisions closed with 4 Monocryl and glue. Patient was awakened went recovery in satisfactory condition. All sponge, needle, instrument counts were correct. There were no immediate complications Estimated Blood Loss 5 Pathology Yes Complications No immediate complications Condition Stable Disposition PACU
[2024-12-02] MEDS: fentaNYL CITRATE INJ (*CRX) 100 MCG/2 ML VIAL 25 MCG IV PUSH ×8 (08:27→09:08)
[2024-12-02] MEDS: oxyCODONE HCL (*CRX) 5 MG TAB IR PO (09:40)
== END 2024-12-02 10:23 | disposition home or self-care (01) ==
PROVIDERS: PCP Family Medicine; Visit Provider Obstetrics & Gynecology
PROC: (CPT 49320; principal; 2024-12-02 07:30)
DX: N83.291 Other ovarian cyst, right side (principal); N83.8 Other noninflammatory disorders of ovary, fallopian tube and broad ligament; N73.6 Female pelvic peritoneal adhesions (postinfective); E03.9 Hypothyroidism, unspecified; K21.9 Gastro-esophageal reflux disease without esophagitis; J45.909 Unspecified asthma, uncomplicated; M19.019 Primary osteoarthritis, unspecified shoulder; Z79.51 Long term (current) use of inhaled steroids; Z79.891 Long term (current) use of opiate analgesic; Z80.1 Family history of malignant neoplasm of trachea, bronchus and lung; Z82.49 Family history of ischemic heart disease and other diseases of the circulatory system
CPT/HCPCS: 58661; 36415; 86850; 86900; 86901; 88305; A9270; J1100; J1200; J1885; J2003; J2250; J2405; J2704; J3010; J7120